=== PATIENT | female | born 1970 | race African-American/Black ===

== ENCOUNTER → 2016-11-02 | Outpatient (CLI) | payer BC, OTHER ==
--- NOTE | 2016-11-02 15:40 | RAD ---
APPROVED REPORT Test Type: Exercise Stress Nurse/Tech: Krys Chavez R.N. Test Indications: chest pain Cardiac History: none Medications: meloxicam Medical History: none Resting ECG: sr Resting Heart Rate: 66 bpm Resting Blood Pressure: 101/51mmHg Pretest Chest Pain: No chest pain Nurse/Tech Notes lungs cta, heart tones regular, good pulse Consent: The procedure was explained to the patient in lay terms. Informed consent was witnessed. Orestes eout was entered into [employer]. History and Stress Test performed by Krys Chavez R.N. Stress Symptoms No chest pain or symptoms. POST EXERCISE Reason for Termination: Reached target heart rate Target HR: Yes Max HR: 164 bpm 93% of Maximum Predicted HR: 176 bpm Exercise duration: 6:59 min:sec, 3 Stage Exercise capacity: 10.0METs Max Blood Pressure: 149/55mmHg Blood Pressure response to exercise: Normal blood pressure response during stress. Heart Rate response to exercise: normal Chest Pain: No. Arrhythmia: No. ST Change: No. INTERPRETATION Stress EKG Conclusion: Negative stress EKG Other Information Quality:Average Risk Assessment: Low Risk Conclusion 1. Exercise EKG only on Oliver Protocol 2. Baseline EKG - NSR 3. No evidence of ischemia at moderate workload on exercise EKG 4. Low risk study
== END | disposition home or self-care (01) ==
LOC: NM 14:00
PROVIDERS: ATTEND Physician Assistant Medical
DX: R07.9 Chest pain, unspecified (principal)
CPT/HCPCS: 93017